=== PATIENT | male | born 1995 | race Caucasian/White ===

== ENCOUNTER → 2021-03-11 09:49 | Outpatient (CLI) | payer OTHER, SELFPAY ==
--- NOTE | ~2021-03-11 | MR_ITS ---
EXAMINATION: MR shoulder LT wo con DATE: 03/11/2021 10:27 INDICATION: Recurrent dislocation, left shoulder. TECHNIQUE: Magnetic resonance imaging (MRI) of the left shoulder was performed without intravenous co ntrast. Sequences included axial PD-weighted FS FSE, coronal oblique PD-weighted FS FSE and T2-weight ed FS FSE, and sagittal oblique T2-weighted FS FSE and T1-weighted FSE. COMPARISON: Left shoulder radiograph 02/25/2021 FINDINGS: Coracoacromial arch: The acromion undersurface is flat in morphology (type I). Acromioclavicular joint is normal. There is no subacromial/subdeltoid bursitis. Rotator cuff: Supraspinatus, infraspinatus, teres minor, and subscapularis tendons are normal. No tear. There is no asymmetric fatty atrophy of the rotator cuff muscle bellies. Biceps tendon and glenoid labrum: The biceps tendon is in bicipital groove. Intra-articular biceps tendon is normal. The superior gleno id labrum is normal. There is a tear of anteroinferior labrum from 3:00 to 4:00. Fluid: There is no glenohumeral joint effusion. Bones/cartilage: The glenoid cartilage is normal. The humeral head cartilage is normal. There is cortical irregularity of humeral head posteriorly (Hill-Sachs fracture deformity). IMPRESSION: 1. Tear of anteroinferior glenoid labrum (Bankart lesion). 2. Hill-Sachs fracture deformity. Reviewed, dictated and finalized at location A. [facility]
== END ==
PROVIDERS: Visit Provider Orthopaedic Surgery
DX: M24.412 Recurrent dislocation, left shoulder (principal); S43.432A Superior glenoid labrum lesion of left shoulder, initial encounter; X58.XXXA Exposure to other specified factors, initial encounter
CPT/HCPCS: 73221